=== PATIENT | male | born 1930 | race Caucasian/White ===

== ENCOUNTER 2018-12-19 11:51 | Inpatient (IN) | payer MEDICARE, OTHER ==
[~2018-12-19] VITALS: Ht 172.7 cm; Wt 77.1 kg
[2018-12-19] MEDS ORDERED: IV NORMAL SALINE 1000 ML BAG IV ONE (12:15)
[2018-12-19] MEDS ORDERED: LOSA1TAB36 PO (12:21)
--- NOTE | 2018-12-19 12:23 | NUR ---
PT IS IN ROOM #2A. DR YANEZ EVALUATED THE PT.
--- NOTE | 2018-12-19 12:25 | NUR ---
Called [facility] ([phone]) to obtain further information per request. Spoke with Martha (pt's nurse) who stated the pt had an unwitnessed fall and was found on the floor on the front patio of the facility. spoke with Martha as well.
[2018-12-19 12:30] LABS: CARBON DIOXIDE 31 mmol/L (21-32); CHLORIDE 104 mmol/L (98-107); CREATININE 1.4 mg/dL (0.6-1.3); GLUCOSE 102 mg/dL (74-106); POTASSIUM 3.7 mmol/L (3.5-5.1); UREA NITROGEN, BLOOD 26 mg/dL (7-18)
[2018-12-19 12:36] LABS: ALANINE AMINOTRANSFERASE 18 U/L (16-63); ALKALINE PHOSPHATASE 60 U/L (50-136); ASPARTATE AMINOTRANSFERASE 11 U/L (15-37); BILIRUBIN,DIRECT 0.1 mg/dL (0.0-0.2); BILIRUBIN,TOTAL 0.4 mg/dL (0.2-1.0); TOTAL PROTEIN, SERUM 6.6 g/dL (6.4-8.2)
[2018-12-19 12:51] LABS: EOSINOPHILS # (AUTO) 0.2 K/uL (0.0-0.7); HEMOGLOBIN 12.7 g/dL (12.5-16.3); MONOCYTES # (AUTO) 0.6 K/uL (2.0-10.0); NEUTROPHILS # (AUTO) 3.1 K/uL (1.8-8.9); RED BLOOD CELL COUNT(AUTO) 3.93 MIL/uL (4.06-5.63)
[2018-12-19 12:55] LABS: BASOPHILS % (AUTO) 0.6 % (0.0-2.0); EOSINOPHILS % (AUTO) 3.2 % (0.0-7.0); HEMATOCRIT 37.2 % (36.7-47.1); LYMPHOCYTES # (AUTO) 1.2 K/uL (20.0-40.0); LYMPHOCYTES % (AUTO) 23.3 % (20.5-51.5); MEAN CORPUSCULAR HEMOGLOBIN 32.3 uug (23.8-33.4); MEAN CORPUSCULAR HGB CONC 34 g/dL (32.5-36.3); MEAN CORPUSCULAR VOLUME 94.8 fL (73.0-96.2); MONOCYTES % (AUTO) 11.7 % (0.0-11.0); NEUTROPHILS % (AUTO) 61.2 % (38.5-71.5); PLATELET COUNT (AUTO) 202 K/uL (152-348); WHITE BLOOD COUNT (AUTO) 5.1 K/uL (3.6-10.2)
[2018-12-19 14:14] LABS: *BILIRUBIN,URIN NEGATIVE (NEGATIVE); *BLOOD, URINE NEGATIVE (NEGATIVE); *CLARITY,URINE SLIGHTLY CLOUDY (CLEAR); *COLOR,URINE YELLOW (YELLOW); *KETONES,URINE NEGATIVE (NEGATIVE); *UROBILINOGEN,URINE 0.2 E.U./dl (NORMAL); LEUKOCYTE ESTERASE ,URINE NEGATIVE (NEGATIVE); NITRITE, URINE NEGATIVE (NEGATIVE); UGLUCOSE NEGATIVE (NEGATIVE)
[2018-12-19 14:22] LABS: BACTERIA,URINE FEW /HPF (NONE SEEN); RBC,URINE NONE SEEN /HPF (0-3); SQUAMOUS EPITHELIAL CELL,UR FEW /HPF (NONE SEEN); WBC,URINE NONE SEEN /HPF (0-3)
[2018-12-19] MEDS ORDERED: LORAZEPAM 2 MG/1 ML VIAL IV ONE (16:15)
[2018-12-19] MEDS ORDERED: LORAZEPAM 2 MG/1 ML VIAL ONE (16:18)
--- NOTE | 2018-12-19 16:58 | NUR ---
[employer] CHAYO FROM [facility] CALLED WITH ADMITING DOCTOR INFORMATION. ADMITTING MD IS DR. HAQUE. [facility] [address] IS CONTINUE TO WORK ON PT's TRANFER ARRANGEMENT ACCORDING TO HER.
--- NOTE | 2018-12-19 18:16 | NUR ---
DR HAQUE CALLED TO [facility] AND TALKED TO IGNACIO FROM ADMITTING DEPARTMENT. ACOORDING TO DR HAQUE PT CAN BE ADMITTED TO [facility] , BECAUSE [facility] DOES NOT HAVE BEDS AVAILABLE AT THIS TIME.
--- NOTE | 2018-12-19 19:31 | NUR ---
Report given to Yoly CLEMENTE Tele.
[2018-12-19] MEDS ORDERED: POTASSIUM CHLORIDE 20 MEQ in IV 1/2NS 1000 ML 1,000 ML IV PRN (20:00)
[2018-12-19] MEDS ORDERED: MIRALAX 17 GM POWD.PACK PO PRN (20:00)
[2018-12-19] MEDS ORDERED: ONDANSETRON 4 MG/2 ML VIAL IV PRN (20:00)
[2018-12-19] MEDS ORDERED: TEMAZEPAM 15 MG CAPSULE PO PRN (20:00)
[2018-12-19] MEDS ORDERED: ACETAMINOPHEN 325 MG TABLET PO PRN (20:00)
--- NOTE | 2018-12-19 20:00 | NUR ---
RECEIVED PATIENT VIA GURNEY FROM ER. PATIENT IS ALERT TO SELF ONLY. CONFUSED AND DISORIENTED. PLACED ON TELE SR LOW 60'S. H/L INTACT AND PATENT NOTED TO LEFT AC. BED ALARM ON. ALL NEEDS ATTENDED.
[2018-12-19 20:04] VITALS: BP 166/77
[2018-12-19] MEDS: hydrALAZINE HCL 25 MG TABLET PO PRN (20:37)
[2018-12-19] MEDS: HYDROCODONE/APAP 5-325MG TABLET PO PRN (20:38)
[2018-12-19] MEDS ORDERED: DOCUSATE SODIUM 100 MG CAPSULE PO SCH (21:00)
[2018-12-19] MEDS ORDERED: HALOPERIDOL LACTATE 5 MG/1 ML VIAL IM PRN (21:15)
--- NOTE | 2018-12-19 21:30 | NUR ---
PATIENT RETAINING URINE, 700cc SHOWN ON BLADDER SCANNER. NOTIFIED DR. CASTILLO AND PATIENT STRAIGHT CATH'D. RECEIVED 750cc OF CLEAR YELLOW. PATIENT COMFORTABLE AT THIS TIME. BED ALARM ON. ALL NEEDS ATTENDED.
[2018-12-19] MEDS ORDERED: Z GUARD REMEDY PASTE 57 GM TUBE TOP PRN (22:30)
[2018-12-20 00:32] VITALS: BP 165/71
--- NOTE | 2018-12-20 04:10 | NUR ---
Received report from outgoing nurse. Pt is currently restless and agitated. Outgoing Nurse had just given Haldol 3mg IM at 0340 AM. Pt removed his IV line and telemetry box. Currently refusing to put tele-box or insert IV. FAMILY SERVICES SPECIALIST assigned will be sitting with patient to ensure safety. But RN will provide patient some space and will try again. No other signs of active distress. Pt able to urinate 300cc with no issues. Sinus Jasiel on tele, will continue to monitor.
[2018-12-20 06:00] VITALS: BP 187/78
[2018-12-20] MEDS: hydrALAZINE HCL 25 MG TABLET PO PRN (06:01)
[2018-12-20] MEDS: HYDROCODONE/APAP 5-325MG TABLET PO PRN (06:02)
--- NOTE | 2018-12-20 06:05 | NUR ---
Patient is calmer at this time. More relaxed. Still gets restless when touched, but able to be redirected and re-assured back to being calm. Lab was able to draw blood at 0530. 0545 RN inserted new IV on R forearm 22 G and resumed fluids at 0550. Tele box re-attached. VS taken at this time as well, and BP elevated at 187/78. Rechecked several times, but remained elevated. PRN Hydralazine given, patient also given PRN [place] for grimacing, restlessness and VS changes indicative of pain. Pt compliant with medications, will re-assess BP. Remains sinus rhythm on tele monitoring. Pt explained importance of remaining calm and avoiding to pull out IV and Tele Box. Good hygiene care provided, gown re-applied and bedside care provided. With additional urine output of 425 cc clear yellow urine, no further signs of urinary retention. Bladder not distended. Will continue to monitor and endorse accordingly.
[2018-12-20] MEDS ORDERED: TEMAZEPAM 7.5 MG CAPSULE PO PRN (06:30)
[2018-12-20 06:34] LABS: BASOPHILS % (AUTO) 0.7 % (0.0-2.0); EOSINOPHILS # (AUTO) 0.2 K/uL (0.0-0.7); EOSINOPHILS % (AUTO) 3.4 % (0.0-7.0); HEMATOCRIT 40.3 % (36.7-47.1); HEMOGLOBIN 13.6 g/dL (12.5-16.3); LYMPHOCYTES # (AUTO) 1.1 K/uL (20.0-40.0); LYMPHOCYTES % (AUTO) 19.8 % (20.5-51.5); MEAN CORPUSCULAR HEMOGLOBIN 32.4 uug (23.8-33.4); MEAN CORPUSCULAR HGB CONC 34 g/dL (32.5-36.3); MEAN CORPUSCULAR VOLUME 95.9 fL (73.0-96.2); MONOCYTES # (AUTO) 0.6 K/uL (2.0-10.0); MONOCYTES % (AUTO) 10.6 % (0.0-11.0); NEUTROPHILS # (AUTO) 3.7 K/uL (1.8-8.9); NEUTROPHILS % (AUTO) 65.5 % (38.5-71.5); PLATELET COUNT (AUTO) 203 K/uL (152-348); WHITE BLOOD COUNT (AUTO) 5.7 K/uL (3.6-10.2)
--- NOTE | 2018-12-20 06:59 | NUR ---
Rechecked BP: 172/70. Asymptomatic. No signs of pain noted. Remains sinus rhythm 62, episodes of sinus michaelle at the lowest 48. Will endorse to incoming shift RN.
[2018-12-20] MEDS ORDERED: PANTOPRAZOLE SODIUM 40 MG TABLET.DR PO SCH (07:00)
[2018-12-20 07:13] LABS: BILIRUBIN,TOTAL 0.7 mg/dL (0.2-1.0); CREATININE 1.2 mg/dL (0.6-1.3); MAGNESIUM 2.2 mg/dL (1.8-2.4); PHOSPHOROUS 2.7 mg/dL (2.5-4.9); POTASSIUM 3.5 mmol/L (3.5-5.1); TOTAL PROTEIN, SERUM 6.8 g/dL (6.4-8.2)
--- NOTE | 2018-12-20 07:30 | NUR ---
Patient calm and comfortable resting in bed with no signs of distress; patient will continue to be monitored.
[2018-12-20 08:58] LABS: THYROID STIMULATING HORMONE 9.983 mIU/mL (0.358-3.740)
[2018-12-20] MEDS ORDERED: HYDROCHLOROTHIAZIDE 12.5 MG CAPSULE PO SCH (09:00)
[2018-12-20] MEDS ORDERED: Medication Not On Formulary EA (Losartan/Hydrochlorothiazide (Losartan-Hctz 50-12.5 Mg T PO SCH (09:00)
[2018-12-20] MEDS ORDERED: LOSARTAN POTASSIUM 25 MG TABLET PO SCH (09:00)
[2018-12-20 11:00] VITALS: BP 147/72
[2018-12-20] MEDS ORDERED: POTASSIUM CHLORIDE 20 MEQ TAB.PRT.SR PO ONE (11:15)
[2018-12-20] MEDS ORDERED: ATOR20TA PO (12:19)
[2018-12-20] MEDS ORDERED: CYAN-28 PO (12:28)
--- NOTE | 2018-12-20 12:34 | NUR ---
The patient is confused, combative and refuses the exam. The tech was unable to finish the left carotis study. Nursing supervisor inspection and testing noted.
--- NOTE | 2018-12-20 13:45 | NUR ---
Patient discharged back to [facility] in stable condition with no signs of distress; Son will be taking patient home in private car ; patient and son educated on diagnosis and discharge instructions. Patient son verbalized understanding.
[2018-12-20] MEDS ORDERED: ATORVASTATIN 20 MG TABLET PO SCH (21:00)
[2018-12-21] MEDS ORDERED: ASPIRIN EC 81 MG TABLET.DR PO SCH (09:00)
== END 2018-12-20 14:00 | DRG 67 ==
LOC: ER 11:54 → TELE3 19:30
PROVIDERS: ADMIT Internal Medicine; ATTEND Internal Medicine
DX: I65.21 Occlusion and stenosis of right carotid artery (principal); N17.0 Acute kidney failure with tubular necrosis; D68.59 Other primary thrombophilia; R40.2242 Coma scale, best verbal response, confused conversation, at arrival to emergency department; R40.2362 Coma scale, best motor response, obeys commands, at arrival to emergency department; R40.2142 Coma scale, eyes open, spontaneous, at arrival to emergency department; S00.81XA Abrasion of other part of head, initial encounter; W18.30XA Fall on same level, unspecified, initial encounter; Y92.098 Other place in other non-institutional residence as the place of occurrence of the external cause; M50.31 Other cervical disc degeneration, high cervical region; M48.02 Spinal stenosis, cervical region; Z87.891 Personal history of nicotine dependence; Z96.652 Presence of left artificial knee joint; I67.2 Cerebral atherosclerosis; F03.90 Unspecified dementia, unspecified severity, without behavioral disturbance, psychotic disturbance, mood disturbance, and anxiety; E53.8 Deficiency of other specified B group vitamins; Z74.09 Other reduced mobility; I73.9 Peripheral vascular disease, unspecified; I11.9 Hypertensive heart disease without heart failure; I44.7 Left bundle-branch block, unspecified; E78.5 Hyperlipidemia, unspecified
CPT/HCPCS: 36415; 70030-TC; 70450; 71045; 72125; 83735; 84100; 84153; 84443; 85025; 85730; 87086; 93005; 93880; A4217; A4663; C1758; G0378; J1630; J2060; J3480; J3490; J7030